=== PATIENT | female | born 1940 | race Two or more races ===

== ENCOUNTER → 2018-02-27 09:12 | Outpatient (CLI) | payer OTHER ==
[~2018-02-27 09:12] MED LIST: NABUMETONE750 MG PO
== END | disposition home or self-care (01) ==
LOC: LAB 09:12
DX: C90.01 Multiple myeloma in remission (principal); D51.0 Vitamin B12 deficiency anemia due to intrinsic factor deficiency; D51.1 Vitamin B12 deficiency anemia due to selective vitamin B12 malabsorption with proteinuria; D63.1 Anemia in chronic kidney disease; N18.3 Chronic kidney disease, stage 3 (moderate); D51.3 Other dietary vitamin B12 deficiency anemia; E08.65 Diabetes mellitus due to underlying condition with hyperglycemia; E08.21 Diabetes mellitus due to underlying condition with diabetic nephropathy; K31.83 Achlorhydria; I73.89 Other specified peripheral vascular diseases; I10 Essential (primary) hypertension; M1A.00X0 Idiopathic chronic gout, unspecified site, without tophus (tophi)

== ENCOUNTER 2018-05-09 07:18 | Outpatient (CLI) | payer OTHER | END 2018-05-09 07:20 | disposition home or self-care (01) | LOC: LAB 07:18 | DX: C90.01 Multiple myeloma in remission (principal); D51.0 Vitamin B12 deficiency anemia due to intrinsic factor deficiency; D51.1 Vitamin B12 deficiency anemia due to selective vitamin B12 malabsorption with proteinuria; N18.3 Chronic kidney disease, stage 3 (moderate); D51.3 Other dietary vitamin B12 deficiency anemia; E08.65 Diabetes mellitus due to underlying condition with hyperglycemia; E08.21 Diabetes mellitus due to underlying condition with diabetic nephropathy; K31.83 Achlorhydria; I73.9 Peripheral vascular disease, unspecified; I10 Essential (primary) hypertension; M1A.00X0 Idiopathic chronic gout, unspecified site, without tophus (tophi) ==

== ENCOUNTER 2018-05-16 08:05 | Outpatient (CLI) | payer OTHER | END 2018-05-16 08:10 | disposition home or self-care (01) | LOC: LAB 08:05 | DX: C90.01 Multiple myeloma in remission (principal); D51.0 Vitamin B12 deficiency anemia due to intrinsic factor deficiency; D51.1 Vitamin B12 deficiency anemia due to selective vitamin B12 malabsorption with proteinuria; D63.1 Anemia in chronic kidney disease; N18.3 Chronic kidney disease, stage 3 (moderate); D51.3 Other dietary vitamin B12 deficiency anemia; E08.65 Diabetes mellitus due to underlying condition with hyperglycemia; E08.21 Diabetes mellitus due to underlying condition with diabetic nephropathy; K31.83 Achlorhydria; I73.9 Peripheral vascular disease, unspecified; I10 Essential (primary) hypertension; M1A.00X0 Idiopathic chronic gout, unspecified site, without tophus (tophi) ==

== ENCOUNTER 2018-06-27 09:17 | Outpatient (CLI) | payer OTHER | END 2018-06-27 09:23 | disposition home or self-care (01) | LOC: LAB 09:17 | DX: C90.01 Multiple myeloma in remission (principal); D51.0 Vitamin B12 deficiency anemia due to intrinsic factor deficiency; D51.1 Vitamin B12 deficiency anemia due to selective vitamin B12 malabsorption with proteinuria; D63.1 Anemia in chronic kidney disease; N18.3 Chronic kidney disease, stage 3 (moderate); D51.3 Other dietary vitamin B12 deficiency anemia; E08.65 Diabetes mellitus due to underlying condition with hyperglycemia; E08.21 Diabetes mellitus due to underlying condition with diabetic nephropathy; K31.83 Achlorhydria; I73.89 Other specified peripheral vascular diseases; I10 Essential (primary) hypertension; M1A.00X0 Idiopathic chronic gout, unspecified site, without tophus (tophi); D50.0 Iron deficiency anemia secondary to blood loss (chronic) ==

== ENCOUNTER 2018-07-22 16:59 | Outpatient (CLI) | payer OTHER | END 2018-07-22 17:16 | disposition home or self-care (01) | LOC: RAD 16:59 | DX: S42.91XA Fracture of right shoulder girdle, part unspecified, initial encounter for closed fracture (principal) ==

== ENCOUNTER 2018-07-30 06:40 | Outpatient (CLI) | payer OTHER | END 2018-07-30 06:51 | disposition home or self-care (01) | LOC: LAB 06:40 | DX: C50.019 Malignant neoplasm of nipple and areola, unspecified female breast (principal); D51.1 Vitamin B12 deficiency anemia due to selective vitamin B12 malabsorption with proteinuria; D63.1 Anemia in chronic kidney disease; N18.3 Chronic kidney disease, stage 3 (moderate); D51.3 Other dietary vitamin B12 deficiency anemia; E08.65 Diabetes mellitus due to underlying condition with hyperglycemia; K31.83 Achlorhydria; I73.89 Other specified peripheral vascular diseases; I10 Essential (primary) hypertension; M1A.00X0 Idiopathic chronic gout, unspecified site, without tophus (tophi); D50.0 Iron deficiency anemia secondary to blood loss (chronic); D51.8 Other vitamin B12 deficiency anemias ==

== ENCOUNTER 2018-08-06 10:25 | Outpatient (CLI) | payer OTHER | END 2018-08-06 10:27 | disposition home or self-care (01) | LOC: RAD 10:25 | DX: M79.642 Pain in left hand (principal); C90.01 Multiple myeloma in remission; D51.0 Vitamin B12 deficiency anemia due to intrinsic factor deficiency; D63.1 Anemia in chronic kidney disease; D51.1 Vitamin B12 deficiency anemia due to selective vitamin B12 malabsorption with proteinuria; N18.3 Chronic kidney disease, stage 3 (moderate); D51.3 Other dietary vitamin B12 deficiency anemia; E08.65 Diabetes mellitus due to underlying condition with hyperglycemia; E08.21 Diabetes mellitus due to underlying condition with diabetic nephropathy; K31.83 Achlorhydria; I73.89 Other specified peripheral vascular diseases; I10 Essential (primary) hypertension; M1A.00X0 Idiopathic chronic gout, unspecified site, without tophus (tophi) ==

== ENCOUNTER 2018-09-05 07:54 | Outpatient (CLI) | payer OTHER | END 2018-09-05 07:59 | disposition home or self-care (01) | LOC: LAB 07:54 | DX: C90.01 Multiple myeloma in remission (principal); D51.0 Vitamin B12 deficiency anemia due to intrinsic factor deficiency; D51.1 Vitamin B12 deficiency anemia due to selective vitamin B12 malabsorption with proteinuria; D63.1 Anemia in chronic kidney disease; N18.3 Chronic kidney disease, stage 3 (moderate); D51.3 Other dietary vitamin B12 deficiency anemia; E08.65 Diabetes mellitus due to underlying condition with hyperglycemia; E08.21 Diabetes mellitus due to underlying condition with diabetic nephropathy; K31.83 Achlorhydria; I73.89 Other specified peripheral vascular diseases; M1A.00X0 Idiopathic chronic gout, unspecified site, without tophus (tophi) ==

== ENCOUNTER 2018-10-03 09:12 | Outpatient (CLI) | payer OTHER | END 2018-10-03 09:20 | disposition home or self-care (01) | LOC: LAB 09:12 | DX: C90.01 Multiple myeloma in remission (principal); D51.0 Vitamin B12 deficiency anemia due to intrinsic factor deficiency; D51.1 Vitamin B12 deficiency anemia due to selective vitamin B12 malabsorption with proteinuria; D63.1 Anemia in chronic kidney disease; N18.3 Chronic kidney disease, stage 3 (moderate); D51.3 Other dietary vitamin B12 deficiency anemia; K31.83 Achlorhydria; I73.89 Other specified peripheral vascular diseases; I10 Essential (primary) hypertension; M1A.00X0 Idiopathic chronic gout, unspecified site, without tophus (tophi); M75.101 Unspecified rotator cuff tear or rupture of right shoulder, not specified as traumatic; D50.8 Other iron deficiency anemias; R97.0 Elevated carcinoembryonic antigen [CEA]; D68.8 Other specified coagulation defects; E11.65 Type 2 diabetes mellitus with hyperglycemia; E78.2 Mixed hyperlipidemia; E03.8 Other specified hypothyroidism ==

== ENCOUNTER 2018-10-12 16:58 | Outpatient (CLI) | payer OTHER | END 2018-10-12 17:14 | disposition home or self-care (01) | LOC: LAB 16:58 | DX: R10.84 Generalized abdominal pain (principal); K62.5 Hemorrhage of anus and rectum ==

== ENCOUNTER 2018-11-02 08:23 | Outpatient (CLI) | payer OTHER | END 2018-11-02 08:44 | disposition home or self-care (01) | LOC: LAB 08:23 | DX: D64.89 Other specified anemias (principal); E11.65 Type 2 diabetes mellitus with hyperglycemia; R31.9 Hematuria, unspecified; N20.0 Calculus of kidney; N39.0 Urinary tract infection, site not specified; R82.8 Abnormal findings on cytological and histological examination of urine ==

== ENCOUNTER 2018-11-21 10:38 | Outpatient (CLI) | payer OTHER | END 2018-11-21 10:46 | disposition home or self-care (01) | LOC: LAB 10:38 | DX: N20.1 Calculus of ureter (principal) ==

== ENCOUNTER 2018-12-14 07:20 | Outpatient (CLI) | payer OTHER | END 2018-12-14 07:24 | disposition home or self-care (01) | LOC: LAB 07:20 | DX: C90.01 Multiple myeloma in remission (principal); D51.0 Vitamin B12 deficiency anemia due to intrinsic factor deficiency; D51.1 Vitamin B12 deficiency anemia due to selective vitamin B12 malabsorption with proteinuria; D63.1 Anemia in chronic kidney disease; N18.3 Chronic kidney disease, stage 3 (moderate); D51.3 Other dietary vitamin B12 deficiency anemia; E08.21 Diabetes mellitus due to underlying condition with diabetic nephropathy; K31.83 Achlorhydria; I73.89 Other specified peripheral vascular diseases; I10 Essential (primary) hypertension; M1A.00X0 Idiopathic chronic gout, unspecified site, without tophus (tophi); M75.101 Unspecified rotator cuff tear or rupture of right shoulder, not specified as traumatic; C90.00 Multiple myeloma not having achieved remission ==

== ENCOUNTER → 2019-02-13 08:32 | Outpatient (CLI) | payer OTHER | END | disposition home or self-care (01) | LOC: LAB 08:32 | DX: E03.8 Other specified hypothyroidism (principal); E78.2 Mixed hyperlipidemia; D64.89 Other specified anemias ==

== ENCOUNTER 2019-03-05 00:55 | Emergency (ER) | payer OTHER ==
[~2019-03-05] VITALS: Ht 162.6 cm; Wt 67.1 kg
[2019-03-05] MEDS ORDERED: LOSARTAN POTASS50 MG (01:15)
[2019-03-05] MEDS ORDERED: DEXAMETHASONE4 MG (01:16)
[2019-03-05] MEDS ORDERED: REVLIMID10 MG (01:16)
[2019-03-05] MEDS ORDERED: LOSARTAN-HCTZ1 EAC1 (01:16)
[2019-03-05] MEDS ORDERED: FOLIC ACID1 MG (01:16)
[2019-03-05] MEDS ORDERED: NEURONTIN300 MG (01:17)
[2019-03-05] MEDS ORDERED: NORVASC2.5 M1 (01:17)
[2019-03-05] MEDS ORDERED: COREG CR10 MG (01:18)
[2019-03-05] MEDS ORDERED: ASPIR-TRIN325 MG (13:13)
== END 2019-03-05 03:53 | disposition home or self-care (01) ==
LOC: ER 00:55
DX: I16.1 Hypertensive emergency (principal); I10 Essential (primary) hypertension

== ENCOUNTER 2019-03-05 12:34 | Emergency (ER) | payer OTHER ==
[~2019-03-05] VITALS: Ht 152.4 cm; Wt 67.1 kg
[~2019-03-05 12:34] MED LIST changes: +COREG CR10 MG; +DEXAMETHASONE4 MG; +FOLIC ACID1 MG; +LOSARTAN POTASS50 MG; +LOSARTAN-HCTZ1 EAC1; +NEURONTIN300 MG; +NORVASC2.5 M1; +REVLIMID10 MG
[2019-03-05] MEDS ORDERED: ASPIR-TRIN325 MG (13:13)
== END 2019-03-05 15:49 | disposition home or self-care (01) ==
LOC: ER 12:34
DX: I16.1 Hypertensive emergency (principal); I10 Essential (primary) hypertension

== ENCOUNTER 2019-03-15 14:41 | Outpatient (CLI) | payer OTHER ==
[~2019-03-15 14:41] MED LIST changes: +ASPIR-TRIN325 MG
== END 2019-03-15 14:43 | disposition home or self-care (01) ==
LOC: RAD 14:41
DX: M79.642 Pain in left hand (principal)

== ENCOUNTER 2019-03-20 08:33 | Outpatient (CLI) | payer OTHER | END 2019-03-20 13:04 | disposition home or self-care (01) | LOC: LAB 08:33 | DX: C90.01 Multiple myeloma in remission (principal); D51.0 Vitamin B12 deficiency anemia due to intrinsic factor deficiency; D63.1 Anemia in chronic kidney disease; N18.3 Chronic kidney disease, stage 3 (moderate); D51.3 Other dietary vitamin B12 deficiency anemia; E08.65 Diabetes mellitus due to underlying condition with hyperglycemia; E08.21 Diabetes mellitus due to underlying condition with diabetic nephropathy; K31.83 Achlorhydria; I73.89 Other specified peripheral vascular diseases; I10 Essential (primary) hypertension; M1A.00X0 Idiopathic chronic gout, unspecified site, without tophus (tophi); M75.101 Unspecified rotator cuff tear or rupture of right shoulder, not specified as traumatic; D50.8 Other iron deficiency anemias; D51.8 Other vitamin B12 deficiency anemias ==

== ENCOUNTER 2019-05-03 07:52 | Outpatient (CLI) | payer OTHER | END 2019-05-03 08:00 | disposition home or self-care (01) | LOC: LAB 07:52 | DX: C90.01 Multiple myeloma in remission (principal); D51.0 Vitamin B12 deficiency anemia due to intrinsic factor deficiency; D51.1 Vitamin B12 deficiency anemia due to selective vitamin B12 malabsorption with proteinuria; D63.1 Anemia in chronic kidney disease; D51.3 Other dietary vitamin B12 deficiency anemia; E08.65 Diabetes mellitus due to underlying condition with hyperglycemia; E08.21 Diabetes mellitus due to underlying condition with diabetic nephropathy; K31.83 Achlorhydria; I73.89 Other specified peripheral vascular diseases; I10 Essential (primary) hypertension; M1A.00X0 Idiopathic chronic gout, unspecified site, without tophus (tophi); M75.101 Unspecified rotator cuff tear or rupture of right shoulder, not specified as traumatic; D68.8 Other specified coagulation defects ==

== ENCOUNTER → 2019-06-12 07:25 | Outpatient (CLI) | payer OTHER | END | disposition home or self-care (01) | LOC: LAB 07:25 | DX: C90.01 Multiple myeloma in remission (principal); D51.0 Vitamin B12 deficiency anemia due to intrinsic factor deficiency; D51.1 Vitamin B12 deficiency anemia due to selective vitamin B12 malabsorption with proteinuria; D63.1 Anemia in chronic kidney disease; D51.3 Other dietary vitamin B12 deficiency anemia; E08.21 Diabetes mellitus due to underlying condition with diabetic nephropathy; K31.83 Achlorhydria; I73.89 Other specified peripheral vascular diseases; I10 Essential (primary) hypertension; M1A.00X0 Idiopathic chronic gout, unspecified site, without tophus (tophi); M75.101 Unspecified rotator cuff tear or rupture of right shoulder, not specified as traumatic ==

== ENCOUNTER 2019-07-30 07:57 | Outpatient (CLI) | payer OTHER | END 2019-07-30 08:05 | disposition home or self-care (01) | LOC: LAB 07:57 | DX: E11.65 Type 2 diabetes mellitus with hyperglycemia (principal); D64.1 Secondary sideroblastic anemia due to disease; E78.2 Mixed hyperlipidemia; E03.3 Postinfectious hypothyroidism ==

== ENCOUNTER → 2019-09-04 08:04 | Outpatient (CLI) | payer OTHER | END | disposition home or self-care (01) | LOC: LAB 08:04 | DX: C90.01 Multiple myeloma in remission (principal); D51.0 Vitamin B12 deficiency anemia due to intrinsic factor deficiency; D51.1 Vitamin B12 deficiency anemia due to selective vitamin B12 malabsorption with proteinuria; D63.1 Anemia in chronic kidney disease; N18.3 Chronic kidney disease, stage 3 (moderate); D51.3 Other dietary vitamin B12 deficiency anemia; E08.65 Diabetes mellitus due to underlying condition with hyperglycemia; E08.21 Diabetes mellitus due to underlying condition with diabetic nephropathy; K31.83 Achlorhydria; I73.89 Other specified peripheral vascular diseases; M75.101 Unspecified rotator cuff tear or rupture of right shoulder, not specified as traumatic ==

== ENCOUNTER 2019-09-29 09:56 | Outpatient (CLI) | payer OTHER | END 2019-09-29 10:08 | disposition home or self-care (01) | LOC: LAB 09:56 | DX: D68.8 Other specified coagulation defects (principal); D64.89 Other specified anemias; Z12.11 Encounter for screening for malignant neoplasm of colon; N39.0 Urinary tract infection, site not specified; C90.01 Multiple myeloma in remission; D51.0 Vitamin B12 deficiency anemia due to intrinsic factor deficiency; D51.1 Vitamin B12 deficiency anemia due to selective vitamin B12 malabsorption with proteinuria; D63.1 Anemia in chronic kidney disease; N18.3 Chronic kidney disease, stage 3 (moderate); D51.3 Other dietary vitamin B12 deficiency anemia; E08.65 Diabetes mellitus due to underlying condition with hyperglycemia; E08.21 Diabetes mellitus due to underlying condition with diabetic nephropathy; K31.83 Achlorhydria; I73.89 Other specified peripheral vascular diseases; M75.101 Unspecified rotator cuff tear or rupture of right shoulder, not specified as traumatic ==

== ENCOUNTER 2019-12-24 08:22 | Outpatient (CLI) | payer OTHER | END 2019-12-24 09:12 | disposition home or self-care (01) | LOC: LAB 08:22 | DX: D50.8 Other iron deficiency anemias (principal); C25.9 Malignant neoplasm of pancreas, unspecified; R97.8 Other abnormal tumor markers; R97.0 Elevated carcinoembryonic antigen [CEA]; C90.01 Multiple myeloma in remission; D51.0 Vitamin B12 deficiency anemia due to intrinsic factor deficiency; D51.1 Vitamin B12 deficiency anemia due to selective vitamin B12 malabsorption with proteinuria; D63.1 Anemia in chronic kidney disease; N18.3 Chronic kidney disease, stage 3 (moderate); D51.3 Other dietary vitamin B12 deficiency anemia; E08.21 Diabetes mellitus due to underlying condition with diabetic nephropathy; E08.65 Diabetes mellitus due to underlying condition with hyperglycemia; K31.83 Achlorhydria; I73.89 Other specified peripheral vascular diseases; M75.101 Unspecified rotator cuff tear or rupture of right shoulder, not specified as traumatic ==

== ENCOUNTER 2020-02-04 08:36 | Outpatient (CLI) | payer OTHER | END 2020-02-04 08:44 | disposition home or self-care (01) | LOC: LAB 08:36 | DX: D50.8 Other iron deficiency anemias (principal); D47.2 Monoclonal gammopathy; C90.00 Multiple myeloma not having achieved remission; C90.01 Multiple myeloma in remission; D51.0 Vitamin B12 deficiency anemia due to intrinsic factor deficiency; D63.1 Anemia in chronic kidney disease; N18.3 Chronic kidney disease, stage 3 (moderate); D51.3 Other dietary vitamin B12 deficiency anemia; E08.65 Diabetes mellitus due to underlying condition with hyperglycemia; E08.21 Diabetes mellitus due to underlying condition with diabetic nephropathy; K31.83 Achlorhydria; I73.89 Other specified peripheral vascular diseases; M75.101 Unspecified rotator cuff tear or rupture of right shoulder, not specified as traumatic ==

== ENCOUNTER → 2020-04-01 07:32 | Outpatient (CLI) | payer OTHER | END | disposition home or self-care (01) | LOC: LAB 07:32 | PROVIDERS: ATTEND Internal Medicine Hematology & Oncology | DX: D50.8 Other iron deficiency anemias (principal); C25.9 Malignant neoplasm of pancreas, unspecified; R97.8 Other abnormal tumor markers; R97.0 Elevated carcinoembryonic antigen [CEA]; C90.01 Multiple myeloma in remission; D51.0 Vitamin B12 deficiency anemia due to intrinsic factor deficiency; D51.1 Vitamin B12 deficiency anemia due to selective vitamin B12 malabsorption with proteinuria; D63.1 Anemia in chronic kidney disease; N18.3 Chronic kidney disease, stage 3 (moderate); D51.3 Other dietary vitamin B12 deficiency anemia; K31.83 Achlorhydria; I73.89 Other specified peripheral vascular diseases; M75.101 Unspecified rotator cuff tear or rupture of right shoulder, not specified as traumatic; E78.2 Mixed hyperlipidemia; D64.89 Other specified anemias; E11.65 Type 2 diabetes mellitus with hyperglycemia ==

== ENCOUNTER 2020-05-04 09:03 | Outpatient (CLI) | payer OTHER | END 2020-05-04 09:13 | disposition home or self-care (01) | LOC: LAB 09:03 | PROVIDERS: ATTEND Internal Medicine Hematology & Oncology | DX: D50.8 Other iron deficiency anemias (principal); I10 Essential (primary) hypertension; R05 Cough; R06.02 Shortness of breath; R50.9 Fever, unspecified; D47.2 Monoclonal gammopathy; C90.00 Multiple myeloma not having achieved remission; C90.01 Multiple myeloma in remission; D51.0 Vitamin B12 deficiency anemia due to intrinsic factor deficiency; D51.1 Vitamin B12 deficiency anemia due to selective vitamin B12 malabsorption with proteinuria; D63.1 Anemia in chronic kidney disease; N18.3 Chronic kidney disease, stage 3 (moderate); D51.3 Other dietary vitamin B12 deficiency anemia; I67.89 Other cerebrovascular disease; K31.83 Achlorhydria; I73.89 Other specified peripheral vascular diseases; M75.101 Unspecified rotator cuff tear or rupture of right shoulder, not specified as traumatic; E11.65 Type 2 diabetes mellitus with hyperglycemia; D64.89 Other specified anemias; N39.0 Urinary tract infection, site not specified; E03.8 Other specified hypothyroidism; E78.2 Mixed hyperlipidemia; D68.8 Other specified coagulation defects ==

== ENCOUNTER 2020-06-09 10:15 | Outpatient (CLI) | payer OTHER | END 2020-06-09 10:21 | disposition home or self-care (01) | LOC: LAB 10:15 | PROVIDERS: ATTEND Internal Medicine Hematology & Oncology | DX: D50.8 Other iron deficiency anemias (principal); C90.01 Multiple myeloma in remission; D51.0 Vitamin B12 deficiency anemia due to intrinsic factor deficiency; D51.1 Vitamin B12 deficiency anemia due to selective vitamin B12 malabsorption with proteinuria; D63.1 Anemia in chronic kidney disease; N18.3 Chronic kidney disease, stage 3 (moderate); D51.3 Other dietary vitamin B12 deficiency anemia; I67.89 Other cerebrovascular disease; K31.83 Achlorhydria; I73.89 Other specified peripheral vascular diseases; M75.101 Unspecified rotator cuff tear or rupture of right shoulder, not specified as traumatic; N18.2 Chronic kidney disease, stage 2 (mild); E11.21 Type 2 diabetes mellitus with diabetic nephropathy; R80.8 Other proteinuria ==

== ENCOUNTER → 2020-07-15 | Outpatient (CLI) | payer OTHER | END | disposition home or self-care (01) | LOC: LAB 08:35 | PROVIDERS: ATTEND Internal Medicine Hematology & Oncology | DX: D50.8 Other iron deficiency anemias (principal); D63.1 Anemia in chronic kidney disease; D51.8 Other vitamin B12 deficiency anemias; C90.01 Multiple myeloma in remission; D51.0 Vitamin B12 deficiency anemia due to intrinsic factor deficiency; D51.1 Vitamin B12 deficiency anemia due to selective vitamin B12 malabsorption with proteinuria; N18.3 Chronic kidney disease, stage 3 (moderate); D51.3 Other dietary vitamin B12 deficiency anemia; I67.89 Other cerebrovascular disease; E08.65 Diabetes mellitus due to underlying condition with hyperglycemia; E08.21 Diabetes mellitus due to underlying condition with diabetic nephropathy; K31.83 Achlorhydria; M75.101 Unspecified rotator cuff tear or rupture of right shoulder, not specified as traumatic ==

== ENCOUNTER → 2020-08-26 07:12 | Outpatient (CLI) | payer OTHER | END | disposition home or self-care (01) | LOC: LAB 07:12 | PROVIDERS: ATTEND Internal Medicine Hematology & Oncology | DX: D50.8 Other iron deficiency anemias (principal); I10 Essential (primary) hypertension; D47.2 Monoclonal gammopathy; C90.00 Multiple myeloma not having achieved remission; C90.01 Multiple myeloma in remission; D51.0 Vitamin B12 deficiency anemia due to intrinsic factor deficiency; D51.1 Vitamin B12 deficiency anemia due to selective vitamin B12 malabsorption with proteinuria; D63.1 Anemia in chronic kidney disease; D51.3 Other dietary vitamin B12 deficiency anemia; I67.89 Other cerebrovascular disease; E08.65 Diabetes mellitus due to underlying condition with hyperglycemia; E08.21 Diabetes mellitus due to underlying condition with diabetic nephropathy; K31.83 Achlorhydria; I73.89 Other specified peripheral vascular diseases; M75.101 Unspecified rotator cuff tear or rupture of right shoulder, not specified as traumatic ==

== ENCOUNTER 2020-11-11 07:14 | Outpatient (CLI) | payer OTHER | END 2020-11-11 07:25 | disposition home or self-care (01) | LOC: LAB 07:14 | PROVIDERS: ATTEND Internal Medicine Hematology & Oncology | DX: D50.8 Other iron deficiency anemias (principal); D51.3 Other dietary vitamin B12 deficiency anemia; I10 Essential (primary) hypertension ==

== ENCOUNTER 2020-12-19 08:32 | Outpatient (CLI) | payer OTHER | END 2020-12-19 08:35 | disposition home or self-care (01) | LOC: LAB 08:32 | PROVIDERS: ATTEND Internal Medicine Hematology & Oncology | DX: D50.8 Other iron deficiency anemias (principal); D63.1 Anemia in chronic kidney disease; C90.01 Multiple myeloma in remission; D51.0 Vitamin B12 deficiency anemia due to intrinsic factor deficiency; D51.1 Vitamin B12 deficiency anemia due to selective vitamin B12 malabsorption with proteinuria; N18.30 Chronic kidney disease, stage 3 unspecified; D51.3 Other dietary vitamin B12 deficiency anemia; I67.89 Other cerebrovascular disease; E08.65 Diabetes mellitus due to underlying condition with hyperglycemia; E08.21 Diabetes mellitus due to underlying condition with diabetic nephropathy; K31.83 Achlorhydria; I73.89 Other specified peripheral vascular diseases; M75.101 Unspecified rotator cuff tear or rupture of right shoulder, not specified as traumatic ==

== ENCOUNTER 2021-01-26 09:38 | Outpatient (CLI) | payer OTHER | END 2021-01-26 09:48 | disposition home or self-care (01) | LOC: LAB 09:38 | PROVIDERS: ATTEND Internal Medicine Hematology & Oncology | DX: D50.8 Other iron deficiency anemias (principal); R79.9 Abnormal finding of blood chemistry, unspecified; I10 Essential (primary) hypertension; R74.02 Elevation of levels of lactic acid dehydrogenase [LDH]; K76.89 Other specified diseases of liver; D47.2 Monoclonal gammopathy; C90.00 Multiple myeloma not having achieved remission ==

== ENCOUNTER 2021-02-23 15:16 | Emergency (ER) | payer OTHER ==
[~2021-02-23] VITALS: Ht 152.4 cm; Wt 62.1 kg
[2021-02-23] MEDS ORDERED: ZESTRIL5 MG PO (15:48)
== END 2021-02-23 19:35 | disposition home or self-care (01) ==
LOC: ER 15:16
DX: I87.2 Venous insufficiency (chronic) (peripheral) (principal); R60.0 Localized edema

== ENCOUNTER 2021-03-13 07:08 | Outpatient (CLI) | payer OTHER ==
[~2021-03-13 07:08] MED LIST changes: +ZESTRIL5 MG PO
== END 2021-03-13 07:11 | disposition home or self-care (01) ==
LOC: LAB 07:08
PROVIDERS: ATTEND Internal Medicine Hematology & Oncology
DX: C90.01 Multiple myeloma in remission (principal); D51.0 Vitamin B12 deficiency anemia due to intrinsic factor deficiency; D51.1 Vitamin B12 deficiency anemia due to selective vitamin B12 malabsorption with proteinuria; D63.1 Anemia in chronic kidney disease; N18.30 Chronic kidney disease, stage 3 unspecified; D51.3 Other dietary vitamin B12 deficiency anemia; I67.89 Other cerebrovascular disease; E08.65 Diabetes mellitus due to underlying condition with hyperglycemia; E08.21 Diabetes mellitus due to underlying condition with diabetic nephropathy; K31.83 Achlorhydria; I73.9 Peripheral vascular disease, unspecified; I10 Essential (primary) hypertension; M75.101 Unspecified rotator cuff tear or rupture of right shoulder, not specified as traumatic

== ENCOUNTER 2021-03-23 07:07 | Inpatient (IN) | payer OTHER ==
[~2021-03-23] VITALS: Ht 160 cm; Wt 62.1 kg
[2021-03-23] MEDS ORDERED: PLAVIX75 MG (07:17)
[2021-03-23] MEDS ORDERED: PROBIOTIC1 EAC2 (07:17)
[2021-03-23] MEDS ORDERED: INTEGRA CAPSUL1 EACH (07:18)
[2021-03-26] MEDS ORDERED: CILOSTAZOL100 MG (13:27)
[2021-03-26] MEDS ORDERED: CYANOCOBAL1000 MCG/1 (13:27)
[2021-03-26] MEDS ORDERED: DEXAMETHASONE4 MG (13:28)
[2021-03-26] MEDS ORDERED: LISINOPRIL-HCT1 EACH (13:28)
[2021-03-26] MEDS ORDERED: FAMOTIDINE40 MG (13:28)
[2021-03-26] MEDS ORDERED: INTEGRA PLUS C1 EACH (13:28)
== END 2021-04-04 11:12 | DRG 481 ==
LOC: ER 07:07 → SURH 13:23 → MEDJ 13:23 → SURH 03-29 18:25
PROVIDERS: Orthopaedic Surgery; ADMIT Specialist; ATTEND Specialist
PROC: 30233N1 Transfusion of Nonautologous Red Blood Cells into Peripheral Vein, Percutaneous Approach (ICD-10-PCS; 2021-03-27)
PROC: 0QS706Z Reposition Left Upper Femur with Intramedullary Internal Fixation Device, Open Approach (ICD-10-PCS; principal; 2021-03-29 07:00)
PROC: 4A12X4Z Monitoring of Cardiac Electrical Activity, External Approach (ICD-10-PCS; 2021-03-30)
DX: S72.22XA Displaced subtrochanteric fracture of left femur, initial encounter for closed fracture (principal); C90.00 Multiple myeloma not having achieved remission; W18.39XA Other fall on same level, initial encounter; I12.9 Hypertensive chronic kidney disease with stage 1 through stage 4 chronic kidney disease, or unspecified chronic kidney disease; N18.31 Chronic kidney disease, stage 3a; D63.1 Anemia in chronic kidney disease; E11.21 Type 2 diabetes mellitus with diabetic nephropathy; Z91.81 History of falling; Z20.822 Contact with and (suspected) exposure to COVID-19; E66.8 Other obesity; Z79.01 Long term (current) use of anticoagulants; L89.322 Pressure ulcer of left buttock, stage 2; R33.8 Other retention of urine

== ENCOUNTER 2021-05-01 12:31 | Emergency (ER) | payer OTHER ==
[~2021-05-01] VITALS: Ht 160 cm; Wt 68.0 kg
[~2021-05-01 12:31] MED LIST changes: +CILOSTAZOL100 MG; +CYANOCOBAL1000 MCG/1; +FAMOTIDINE40 MG; +INTEGRA CAPSUL1 EACH; +INTEGRA PLUS C1 EACH; +LISINOPRIL-HCT1 EACH; +PLAVIX75 MG; +PROBIOTIC1 EAC2
== END 2021-05-01 21:36 | disposition home or self-care (01) ==
LOC: ER 12:31
DX: K59.09 Other constipation (principal); R10.2 Pelvic and perineal pain; R10.31 Right lower quadrant pain

== ENCOUNTER 2021-05-19 16:20 | Emergency (ER) | payer OTHER ==
[~2021-05-19] VITALS: Ht 162.6 cm; Wt 60.3 kg
== END 2021-05-19 18:09 | disposition home or self-care (01) ==
LOC: ER 16:20
DX: K56.41 Fecal impaction (principal); R10.84 Generalized abdominal pain

== ENCOUNTER 2021-05-22 14:21 | Emergency (ER) | payer OTHER ==
[~2021-05-22] VITALS: Ht 160 cm; Wt 63.5 kg
== END 2021-05-22 23:03 | disposition home or self-care (01) ==
LOC: ER 14:21
DX: R42 Dizziness and giddiness (principal); C90.00 Multiple myeloma not having achieved remission; Z11.52 Encounter for screening for COVID-19

== ENCOUNTER 2021-10-27 17:27 | Inpatient (IN) | payer OTHER ==
[~2021-10-27] VITALS: Ht 162.6 cm; Wt 65.8 kg
== END 2021-11-07 16:33 | disposition home or self-care (01) | DRG 371 ==
LOC: ER 17:27 → SEC-K 10-28 11:23 → MEDI 10-28 17:37
PROVIDERS: ADMIT Specialist; ATTEND Specialist
PROC: 4A12X4Z Monitoring of Cardiac Electrical Activity, External Approach (ICD-10-PCS; principal; 2021-10-28)
PROC: B24BZZZ Ultrasonography of Heart with Aorta (ICD-10-PCS; 2021-10-28)
PROC: 3E0F7SF Introduction of Other Gas into Respiratory Tract, Via Natural or Artificial Opening (ICD-10-PCS; 2021-10-28)
DX: A04.72 Enterocolitis due to Clostridium difficile, not specified as recurrent (principal); I21.A1 Myocardial infarction type 2; I21.4 Non-ST elevation (NSTEMI) myocardial infarction; N39.0 Urinary tract infection, site not specified; C90.00 Multiple myeloma not having achieved remission; B96.22 Other specified Shiga toxin-producing Escherichia coli [E. coli] [STEC] as the cause of diseases classified elsewhere; K52.89 Other specified noninfective gastroenteritis and colitis; I12.9 Hypertensive chronic kidney disease with stage 1 through stage 4 chronic kidney disease, or unspecified chronic kidney disease; E11.22 Type 2 diabetes mellitus with diabetic chronic kidney disease; N18.30 Chronic kidney disease, stage 3 unspecified; E86.0 Dehydration; I73.89 Other specified peripheral vascular diseases; Z20.822 Contact with and (suspected) exposure to COVID-19; Z79.4 Long term (current) use of insulin; Z79.01 Long term (current) use of anticoagulants

== ENCOUNTER 2021-11-13 13:25 | Outpatient (CLI) | payer OTHER | END 2021-11-13 15:00 | disposition home or self-care (01) | LOC: LAB 13:25 | PROVIDERS: ATTEND Urology | DX: N39.0 Urinary tract infection, site not specified (principal); B96.5 Pseudomonas (aeruginosa) (mallei) (pseudomallei) as the cause of diseases classified elsewhere ==

== ENCOUNTER 2021-12-01 10:28 | Outpatient (CLI) | payer OTHER | END 2021-12-01 10:32 | disposition home or self-care (01) | LOC: LAB 10:28 | PROVIDERS: ATTEND Internal Medicine Hematology & Oncology | DX: D50.8 Other iron deficiency anemias (principal); R79.89 Other specified abnormal findings of blood chemistry; I10 Essential (primary) hypertension; R74.02 Elevation of levels of lactic acid dehydrogenase [LDH]; K76.89 Other specified diseases of liver; D51.8 Other vitamin B12 deficiency anemias; C90.00 Multiple myeloma not having achieved remission; D51.0 Vitamin B12 deficiency anemia due to intrinsic factor deficiency; D51.1 Vitamin B12 deficiency anemia due to selective vitamin B12 malabsorption with proteinuria; D63.1 Anemia in chronic kidney disease; D51.3 Other dietary vitamin B12 deficiency anemia; I67.89 Other cerebrovascular disease; E08.65 Diabetes mellitus due to underlying condition with hyperglycemia; E08.21 Diabetes mellitus due to underlying condition with diabetic nephropathy; K31.83 Achlorhydria; I73.89 Other specified peripheral vascular diseases; M75.101 Unspecified rotator cuff tear or rupture of right shoulder, not specified as traumatic ==

== ENCOUNTER 2022-03-30 07:25 | Outpatient (CLI) | payer OTHER | END 2022-03-30 07:44 | disposition home or self-care (01) | LOC: LAB 07:25 | PROVIDERS: ATTEND Internal Medicine Hematology & Oncology | DX: I11.9 Hypertensive heart disease without heart failure (principal); E78.1 Pure hyperglyceridemia; D50.8 Other iron deficiency anemias; R79.9 Abnormal finding of blood chemistry, unspecified; I10 Essential (primary) hypertension; R74.02 Elevation of levels of lactic acid dehydrogenase [LDH]; K76.89 Other specified diseases of liver; D47.2 Monoclonal gammopathy; C90.00 Multiple myeloma not having achieved remission; D63.8 Anemia in other chronic diseases classified elsewhere ==